=== PATIENT | male | born 1970 | race Caucasian/White ===

== ENCOUNTER → 2021-12-11 | Emergency (ER) | payer BC ==
[~2021-12-11] VITALS: Ht 177.8 cm; Wt 79.4 kg
== END | disposition designated cancer center or children's hospital (05) ==
LOC: ER 18:52
DX: S43.085A Other dislocation of left shoulder joint, initial encounter (principal); M21.822 Other specified acquired deformities of left upper arm; W18.09XA Striking against other object with subsequent fall, initial encounter; Y93.89 Activity, other specified; Y92.832 Beach as the place of occurrence of the external cause; Y99.8 Other external cause status